=== PATIENT | female | born 1945 ===

== ENCOUNTER 2018-06-22 22:42 | Emergency (ER) | payer MEDICARE, OTHER ==
[2018-06-22 22:42] VITALS: BMI 29.9
[2018-06-22] MEDS ORDERED: Sodium Chloride 0.9% 1,000 ML IV ONE (23:22)
[2018-06-22] MEDS ORDERED: Sodium Chloride 0.9% 1,000 ML ONE (23:33)
[2018-06-22 23:36] LABS: BASO # 0.1 K/uL (0.0-0.2); BASO % 0.9 % (0.0-2.0); EOS % 0.2 % (0.0-4.0); LYMPH # 1.1 K/uL (1.0-4.3); LYMPH % 14.3 % (20.0-40.0); MEAN CELL VOLUME 85.7 fL (81.0-99.0); MEAN CORPUSCULAR HGB CONC 33.9 g/dL (33.0-37.0); MEAN PLATELET VOLUME 7.9 fL (7.2-11.7); MONO # 0.7 K/uL (0.0-0.8); MONO % 8.7 % (0.0-10.0); NEUT # 5.9 K/uL (1.8-7.0); NEUT % 75.9 % (50.0-75.0); RBC 4.46 Mil/uL (3.80-5.20); RED CELL DISTRIBUTION WIDTH 13.4 % (11.5-14.5); WHITE BLOOD COUNT 7.8 K/uL (4.8-10.8)
[2018-06-22 23:46] LABS: ALB/GLOB RATIO 1.2 (1.0-2.1); ALBUMIN 4.3 g/dL (3.5-5.0); ALT/SGPT 14 U/L (9-52); AST/SGOT 12 U/L (14-36); BLOOD UREA NITROGEN 12 mg/dL (7-17); GFR NON-AFRICAN AMERICAN > 60
[2018-06-22 23:58] LABS: B-TYPE NATRIURETIC PEPTIDE 126 pg/mL (0-900)
--- NOTE | 2018-06-23 00:36 | C.PDOC ---
History Of Present Illness 72 y/o female presents to the ED complaining of persistent chest pain. 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 She states she was having her chemo today and afte rwards she felt nauseous. After vomiting, the patient reports experiencing left, parasternal chest discomfort. The patient took Zofran with improvement of her symptoms. She currently has a metaport on her right chest. The patient denies any SOB or substernal chest pressure. Time Seen by Provider: 06/22/18 23:06 Chief Complaint (Nursing): Chest Pain History Per: Patient History/Exam Limitations: no limitations Onset/Duration Of Symptoms: Hrs Current Symptoms Are (Timing): Still Present Quality: "Pain" Associated Symptoms: Nausea Recent travel outside of the [place]: No Past Medical History Reviewed: Historical Data, Nursing Documentation, Vital Signs Vital Signs: Last Vital Signs Temp 97.3 F L 06/22/18 22:51 Pulse 93 H 06/22/18 23:52 Resp 14 06/22/18 23:52 BP 128/59 L 06/22/18 23:52 Pulse Ox 100 06/22/18 23:52 - Medical History PMH: Asthma, Diabetes, HTN, Hypercholesterolemia Denies: Chronic Kidney Disease Other Surgeries: Gastric ulcer - [facility] CORONAR ARTERIOGR-2 CATH (05/08/04) ESOPHAGOGASTRODUODENOSCOPY [EGD] W/CLOSED BIOPSY (12/09/14) LEFT HEART CARDIAC CATH (05/08/04) LT HEART ANGIOCARDIOGRAM (05/08/04) PERCUTAN NEEDLE BX OF THYROID GLAND (01/15/15) Family History: States: Unknown Family Hx - Social History Hx Tobacco Use: No Hx Alcohol Use: No Hx Substance Use: No - Immunization History Hx Tetanus Toxoid Vaccination: Yes Hx Influenza Vaccination: Yes Hx Pneumococcal Vaccination: Yes Review Of Systems Except As Marked, All Systems Reviewed And Found Negative. Constitutional: Negative for: Fever Cardiovascular: Positive for: Chest Pain Gastrointestinal: Positive for: Nausea, Vomiting Physical Exam - Physical Exam Appears: Non-toxic, No Acute Distress Skin: Warm, Dry Head: Atraumatic, Normacephalic Eye(s): bilateral: PERRL, EOMI Oral Mucosa: Moist Neck: Supple Chest: Tenderness (digitally reproducible left paratsternal border, T3 T4 tenderness) Cardiovascular: Rhythm Regular, No Murmur Respiratory: No Rales, No Rhonchi, No Wheezing Gastrointestinal/Abdominal: Soft, No Tenderness, No Distention Extremity: Normal ROM Extremity: Bilateral: Normal Color And Temperature, Normal ROM Neurological/Psych: Oriented x3, Normal Speech ED Course And Treatment - Laboratory Results Result Diagrams: 06/22/18 23:31 06/22/18 23:31 Lab Interpretation: Normal (trop neg.) ECG: Interpreted By Me ECG Rhythm: Sinus Tachycardia ECG Interpretation: Normal Rate From EC O2 Sat by Pulse Oximetry: 100 (RA) Pulse Ox Interpretation: Normal - Radiology CXR: Interpreted by Me CXR Interpretation: Yes: No Acute Disease Reevaluation Time: 01:04 Reassessment Condition: Improved Medical Decision Making Medical Decision Making: Impression: 72 y/o patient presents to the ED complaining of chest pain s/p chemo/radiation therapy for anal tumor Plan: -EKG - B-Type Natriuretic -CMP -Troponin I -CBC -Chest X-Ray -IV Fluids -UA -Toradol 30 mg -Protonix Inj 40 mg -Zofran 4 mg Costochondritris L chest vomiting prob related to chemo/rads reassured. Disposition Doctor Will See Patient In The: Office Counseled Patient/Family Regarding: Studies Performed, Diagnosis - Disposition Disposition: HOME/ ROUTINE Disposition Time: 01:05 Condition: GOOD Forms: [facility] ([employer]) - Clinical Impression Clinical Impression: Vomiting, Chest wall discomfort - Scribe Statement The provider has reviewed the documentation as recorded by the Scribe (María Montgomery) Provider Attestation: All medical record entries made by the Scribe were at my direction and personally dictated by me. I have reviewed the chart and agree that the record accurately reflects my personal performance of the history, physical exam, medical decision making, and the department course for this patient. I have also personally directed, reviewed, and agree with the discharge instructions and disposition.
[2018-06-23 01:03] VITALS: BP 118/89; PULSE 110; RESP 18; TEMP 98.7
[2018-06-23 01:05] VITALS: O2SAT 100
[2018-06-23 01:10] LABS: SQUAMOUS EPITHIAL < 1 /hpf (0-5); URINE BACTERIA MOD (<OCC); URINE BILIRUBIN NEGATIVE (NEGATIVE); URINE CLARITY Hazy (Clear); URINE COLOR Yellow (YELLOW); URINE GLUCOSE (UA) NORMAL (Normal); URINE LEUKOCYTE ESTERASE 3+ Leu/uL (Negative); URINE PROTEIN NEGATIVE (NEGATIVE); URINE UROBILINOGEN NORMAL mg/dL (0.2-1.0)
[2018-06-23 01:25] LABS: URINE BLOOD 2+ (NEGATIVE)
--- NOTE | 2018-06-23 08:32 | RAD ---
Date of service: 06/22/2018 PROCEDURE: CHEST RADIOGRAPH, 1 VIEW HISTORY: SOB COMPARISON: 11/03/2016. FINDINGS: The right MediPort terminates at the cavoatrial junction. LUNGS: The lungs are well inflated and clear. PLEURA: No pneumothorax or pleural fluid seen. CARDIOVASCULAR: Normal. OSSEOUS STRUCTURES: No significant abnormalities. VISUALIZED UPPER ABDOMEN: Normal. OTHER FINDINGS: None. IMPRESSION: No acute findings. The right MediPort terminates at the cavoatrial junction.
--- NOTE | 2018-06-26 17:35 | CARD ---
APPROVED REPORT Date of service: 06/22/2018 EKG Measurement Heart [id number] <Conclusion> Sinus tachycardia Left axis deviation Abnormal ECG
== END 2018-06-23 01:14 | disposition home or self-care (01) ==
LOC: C.ER 22:42
DX: R07.89 Other chest pain (principal); R11.10 Vomiting, unspecified
CPT/HCPCS: 71045; 80053; 81001; 83880; 84484; 85025; 96361; 96374; 96375; 99285; C9113; J1885; J2405; J7030